=== PATIENT | male | born 1960 | race Caucasian/White ===

== ENCOUNTER → 2019-06-29 | Outpatient (CLI) | payer BC ==
--- NOTE | 2019-06-29 21:23 | CT ---
EXAMINATION TYPE: CT chest wo con DATE OF EXAM: 06/29/2019 COMPARISON: None HISTORY: lung nodule CT DLP: 237.2 mGycm, Automated exposure control for dose reduction was used. CONTRAST: Performed injected with 0 mL of Isovue 300. TECHNIQUE: Axial images were obtained at 5 mm thick sections. Reconstructed images are reviewed on [employer] computer in the coronal plane. FINDINGS: Portion of the thyroid visualized is normal. There is a 0.7 cm density within the mid left lung. Slightly more superior this has a curvilinear ousmane earance suggesting this may be a vascular structure. Some minimal pleural thickening along the latera l right apex may be present. Series 4 image 11 measuring 0.6 cm depth. Some nonspecific pneumonitis changes along the right midlung periphery. Series 4 image 31. Some nonsp ecific pneumonitis changes in the posterior medial left lung base. Series 4 image 51. No enlarged mediastinal or hilar adenopathy is evident. Small shotty lymph nodes are in the pretrac heal space and aortopulmonic window. The ascending aorta diameter at the level of the main pulmonary artery is 3.3 cm. The main pulmonary artery diameter at the bifurcation is 2.[address] sections are obtained through the upper abdomen. Abdomen is essentially unremarkable. IMPRESSIONS: 1. 0.7 cm nodule left midlung may be vascular in origin. Short-term follow-up is recommended. 2. There are scattered areas of pneumonitis discussed above can be reevaluated short-term follow-up. Recommendations: 1. Follow-up chest CT 6 months.
== END | disposition home or self-care (01) ==
LOC: RADCTMAIN 08:18
PROVIDERS: ATTEND Family Medicine
DX: J18.9 Pneumonia, unspecified organism (principal)
CPT/HCPCS: 71250

== ENCOUNTER → 2020-01-21 | Outpatient (CLI) | payer BC ==
--- NOTE | 2020-01-21 08:46 | CT ---
EXAMINATION TYPE: CT chest w con DATE OF EXAM: 01/21/2020 COMPARISON: 06/29/2019 HISTORY: Solitary pulmonary nodule CT DLP: 268.7 mGycm Automated exposure control for dose reduction was used. CONTRAST: CT scan of the chest is performed with IV Contrast, patient injected with 100 mL of Isovue 300. FINDINGS: LUNGS: The lungs are grossly clear, there is no concerning parenchymal mass or nodule identified. T here is no pleural effusion or pneumothorax seen. The tracheobronchial tree is patent. No sizable no dule or pleural effusion. Prominent structure in the left upper lobe appears represent a tortuous blo od vessel. Areas of subsegmental consolidation typical of atelectasis. Subpleural thickening or tiny nodularity in the right upper lobe is able measuring less than 5 mm MEDIASTINUM: There are no greater than 1 cm hilar or mediastinal lymph nodes. Heart size is stable. H eart size is within normal limits. There is mild coronary artery calcification. Aorta of normal calib er.. OTHER: Small hiatal hernia. Hypertrophic and degenerative changes of the spine are seen. IMPRESSION: 1. There is no suspicious pulmonary nodule or mass. Area of concern appears to represent a tortuous b lood vessel. Short-term follow-up pulmonary CTA is recommended to exclude a small pulmonary vascular malformation
== END | disposition home or self-care (01) ==
LOC: RADCTMAIN 07:36
PROVIDERS: ATTEND Family Medicine
DX: R91.1 Solitary pulmonary nodule (principal)
CPT/HCPCS: 71260; 36415; Q9967

== ENCOUNTER → 2022-02-17 | Outpatient (CLI) | payer BC ==
--- NOTE | 2022-02-18 07:37 | MR ---
EXAMINATION TYPE: MR knee RT wo con DATE OF EXAM: 02/17/2022 COMPARISON: Outside right knee x-ray January 18, 2022 HISTORY: Right knee pain, locking and swelling for 3 months. TECHNIQUE: Multiplanar, multisequence imaging of the right knee is performed without IV contrast. FINDINGS: Slightly suboptimal due to to motion artifact degradation. MEDIAL MENISCUS: Anterior and posterior horns are intact without tear. LATERAL MENISCUS: Anterior and posterior horns are intact without tear. CRUCIATE LIGAMENTS: The anterior and posterior cruciate ligaments are intact and unremarkable. COLLATERAL LIGAMENTS: The medial collateral ligament and lateral collateral ligament complex are inta ct. Mild fluid signal surrounds medial collateral ligament. EXTENSOR MECHANISM: Visualized quadriceps and patellar tendons are intact. Increased signal distal qu adriceps tendon. EFFUSION: Large size suprapatellar joint effusion. POPLITEAL CYST: Moderate to large sized multi septated popliteal/art cyst. Ill-defined fluid exten ds inferiorly. TRICOMPARTMENT SPACES: Mild to moderate tricompartment joint space loss and mild spurring. 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 Significant including full-thickness cartilaginous loss medial tibiofe moral compartment. BONE MARROW SIGNAL: There is a heterogeneous increased T2 signal involving the anterior medial and to greater degree lateral aspect of the distal medial femoral condyle sagittal image 15 for reference. There is heterogeneous increased T2 signal involving the inferior aspect of the patella. OTHER: No additional significant abnormality is appreciated. IMPRESSION: 1. Moderate to borderline advanced tricompartment degenerative changes as detailed above . 2. Large suprapatellar joint effusion. 3. Moderate to large sized multiseptated leaking popliteal cyst. 4. Mild MCL sprain injury. 5. Tendinopathy distal quadriceps tendon.
== END | disposition home or self-care (01) ==
LOC: RADMRIMAIN 12:57
PROVIDERS: ATTEND Orthopaedic Surgery
DX: S83.411A Sprain of medial collateral ligament of right knee, initial encounter (principal); M17.11 Unilateral primary osteoarthritis, right knee; M71.21 Synovial cyst of popliteal space [Baker], right knee; M67.863 Other specified disorders of tendon, right knee

== ENCOUNTER → 2022-03-25 | Outpatient (CLI) | payer BC | END | disposition home or self-care (01) | LOC: LABPAT 12:23 | PROVIDERS: ATTEND Orthopaedic Surgery | DX: Z01.812 Encounter for preprocedural laboratory examination (principal); M17.11 Unilateral primary osteoarthritis, right knee; Z22.322 Carrier or suspected carrier of Methicillin resistant Staphylococcus aureus | CPT/HCPCS: 87070 ==

== ENCOUNTER 2022-04-28 05:34 | Day surgery (SDC) | payer BC ==
--- NOTE | 2022-04-27 19:18 | HP ---
HISTORY AND PHYSICAL DATE OF SURGERY: 04/28/2022. HISTORY OF PRESENT ILLNESS: Eugene Yoon is a 61-year-old gentleman, seen with progressive right knee pain. After treatment options were discussed with him, he elected to proceed with right total knee arthroplasty. Consent was obtained. Medical clearance was provided by Dr. Vidal. PAST MEDICAL HISTORY: Noncontributory. PAST SURGICAL HISTORY: Left shoulder arthroscopy. DAILY MEDICATIONS: Aleve. ALLERGIES: Penicillin. SOCIAL HISTORY: He denies tobacco use. PHYSICAL EVALUATION OF THE RIGHT KNEE: His range of motion is -3/4 to 125 degrees. [id number] effusion. Tenderness in medial joint line. Crepitus in medial and patellofemoral compartments with range of motion. Pain with patellofemoral compression. Ligaments are stable. Hip rotation is without pain. Distal neurovascular exam is intact. IMAGING STUDIES: Right knee radiographs reveal severe osteoarthritic changes. IMPRESSION: Right knee osteoarthritis. PLAN: Right total knee arthroplasty. MMODL / IJN: [id number] /
[~2022-04-28 05:34] MED LIST: ACETAMINOPHEN TAB 500 MG TAB PO PRN; MELOXICAM 7.5 MG TAB PO PRN; TRANEXAMIC ACID IN NACL,ISO-OS 1,000 MG in SALINE 1 100ML.BAG IVPB PRN
[2022-04-28] MEDS ORDERED: MIDAZOLAM 2 MG/2 ML VIAL IV PRN (06:05)
[2022-04-28] MEDS ORDERED: LIDOCAINE 1% (10MG/ML) FOR IV START INTRADERMA PRN (06:05)
[2022-04-28] MEDS ORDERED: LACTATED RINGERS 1,000 ML IV SCH (06:05)
[2022-04-28] MEDS ORDERED: DEXAMETHASONE SOD PHOSPHATE 4 MG/ML 1 ML VIAL IV ONE (06:05)
[2022-04-28] MEDS ORDERED: ONDANSETRON 4 MG/2 ML VIAL IVP ONE (06:05)
[2022-04-28] MEDS ORDERED: MIDAZOLAM 2 MG/2 ML VIAL IVP ONE (06:51)
[2022-04-28] MEDS ORDERED: fentaNYL (PF) 50 MCG/ML 2 ML AMP IVP PRN (07:00)
[2022-04-28] MEDS ORDERED: HYDROmorphone 0.5 MG/0.5 ML SYRINGE IVP PRN ×3 (07:00→09:13)
[2022-04-28] MEDS ORDERED: LIDOCAINE 4% LTA KIT (4 ML) TOPICAL ONE (07:25)
[2022-04-28] MEDS ORDERED: MIDAZOLAM 2 MG/2 ML VIAL ONE (07:25)
[2022-04-28] MEDS ORDERED: LIDOCAINE 2% INJ 20 MG/ML (2 ML VIAL) ONE (07:25)
[2022-04-28] MEDS ORDERED: TRANEXAMIC ACID IN NACL,ISO-OS 1,000 MG/100 ML BAG ONE (07:25)
[2022-04-28] MEDS ORDERED: HYDROmorphone (PF) 1 MG/ML ONE (07:25)
[2022-04-28] MEDS ORDERED: ROCURONIUM 10 MG/ML (5 ML VIAL) IV ONE (07:25)
[2022-04-28] MEDS ORDERED: SUCCINYLCHOLINE CHLORIDE 200 MG/10 ML VIAL IV ONE (07:25)
[2022-04-28] MEDS ORDERED: DEXAMETHASONE SOD PHOSPHATE 4 MG/ML 1 ML VIAL ONE (07:25)
[2022-04-28] MEDS ORDERED: ROPIVACAINE 5 MG/ML 30 ML VIAL ONE (07:25)
[2022-04-28] MEDS ORDERED: NEOSTIGMINE 1 MG/ML 10 ML VIAL ONE (07:25)
[2022-04-28] MEDS ORDERED: PROPOFOL 10 MG/ML 20 ML VIAL IV ONE (07:25)
[2022-04-28] MEDS ORDERED: GLYCOPYRROLATE 0.2 MG/ML 2 ML VIAL ONE (07:25)
[2022-04-28] MEDS ORDERED: fentaNYL (PF) 50 MCG/ML 2 ML AMP ONE (07:25)
[2022-04-28] MEDS ORDERED: IV FLUID CONTINUATION 400 ML IV ONE (07:30)
[2022-04-28] MEDS ORDERED: ceFAZolin 1,000 MG in SODIUM CHLORIDE 0.9% 1,000 ML IRRIGATION ONE (08:02)
[2022-04-28] MEDS ORDERED: LACTATED RINGERS 1,000 ML IV ONE ×3 (08:05→10:28)
[2022-04-28] MEDS ORDERED: HYDROcodone/APAP 5-325MG 1 EACH TAB PO PRN (09:13)
[2022-04-28] MEDS ORDERED: HYDROmorphone 1 MG/ML 1 ML SYRINGE IVP PRN (09:13)
[2022-04-28] MEDS ORDERED: ONDANSETRON 4 MG/2 ML VIAL IVP PRN (09:13)
[2022-04-28] MEDS ORDERED: HYDROcodone/APAP 7.5-325MG 1 EACH TAB PO PRN (09:13)
[2022-04-28] MEDS ORDERED: NALOXONE 0.4 MG/ML 1 ML VIAL IV PRN (09:13)
--- NOTE | 2022-04-28 09:13 | P.OP ---
Date of Procedure: 04/28/22 Preoperative Diagnosis: Right knee osteoarthritis Postoperative Diagnosis: Right knee osteoarthritis Procedure(s) Performed: Right total knee arthroplasty Implants: 1. Depuy attune size 5 right cruciate retaining cemented femur 2. Depuy attune size 5 fixed bearing cemented tibial baseplate 3. Depuy attune size 5 cruciate retaining fixed bearing 8 mm polyethylene tibial insert 4. Depuy attune 41 mm all polyethylene cemented patella Anesthesia: GETA, regional (Adductor canal catheter, Ipack block) Surgeon: Paul Sloan Cupola Hoist Operator #1: Quang Espinal Estimated Blood Loss (ml): 40 Pathology: other (Bone) Condition: stable Disposition: PACU Indications for Procedure: 61-year-old patient seen with symptomatic right knee osteoarthritis. After treatment options were discussed, he elected to proceed with right total knee arthroplasty. Operative Findings: see description of procedure Description of Procedure: Patient was taken to the operative suite after having an adductor canal catheter placed by the department of anesthesia. Patient underwent a general anesthetic by the department of anesthesia. Patient was given preoperative IV intake antibiotics and TXA. A well-padded tourniquet was placed about the right lower extremity. The lower extremity was then prepped and draped in the normal sterile orthopedic fashion. The extremity was elevated, a tourniquet was insufflated to 300. A standard anterior incision was made sharply through skin. Dissection was taken down through the subcutaneous soft tissues down to the extensor mechanism. A medial arthrotomy was performed, patella was everted and knee was flexed. There was advanced osteoarthritis noted. I introduced my distal intramedullary femoral drill. I then introduced the distal femoral cutting jig. Tristan PINK secured the cutting jig with 2 pins. I held retractors in position while Tristan PINK performed the distal femoral resection through the guide area we now removed her distal femoral cutting guide. We now placed our 4-in-1 femoral cutting block and positioned and it was secured with 2 pins by Tristan PINK while I held the block in position. The distal femoral finishing was now completed. A proximal tibial cutting guide was positioned. I held the guide in the appropriate position with both hands well Tristan PINK inserted stabilizing pins into the guide. Proximal tibial cut was made. We now placed a trial femoral component into position, along with an appropriate size tibial tray and insert. We now took the knee through range of motion and had full extension good flexion and good overall soft tissue balance noted. The patella was everted and stabilized with 2 towel clips held by Tristan PINK while I performed a flush with patellar quad tendon utilizing a fresh sawblade. We templated the patella, appropriate drill holes were made. An appropriate trial patella was positioned, knee was taken through full range of motion with the patella tracking very nicely. The trial patella was removed. Drill holes were made through the femoral component. All trial components were removed after marking off the appropriate rotation of the tibia. Retractors were now positioned along the proximal tibia. An appropriate keel punch was made with the appropriate size tibial guide by myself on Tristan PINK assisted by holding retractors. At this point appropriate size implants were chosen and opened. The joint was irrigated copiously with pulse lavage mechanical irrigation. The wound was irrigated with pulse lavage mechanical irrigation. We mixed antibiotic methylmethacrylate. We placed the knee into flexion. We placed multiple retractors assisted by Tristan PINK to expose the proximal tibia. Once the methyl methacrylate was ready, the tibial component was cemented into place removing any excess methylmethacrylate form by both myself and Tristan PINK. The femoral component was cemented into place removing the removing any excess methylmethacrylate performed by both myself and Tristan PINK. We then inserted the appropriate size polyethylene tibial insert. We made sure that it was locked into position. We took the knee into full extension, and then back in a flexion making sure we had removed any excess methylmethacrylate. The patellar component was then cemented down and secured with clamp. Excess methylmethacrylate removed. We kept the knee in full extension, patellar clamp in position until methylmethacrylate had hardened. Once it had hardened the patellar clamp was removed. The knee was taken through full range of motion. The patella tracked nicely. There was good soft tissue balancing. The tourniquet was now released. Additional hemostasis was achieved via electrocautery. A second gram of TXA was given. The wound again was irrigated with pulse lavage mechanical irrigation. The extensor mechanism was repaired with Ethibond suture. We checked the repair with range of motion and it was stable. The subcutaneous soft tissues were repaired with Vicryl in layers. The skin was approximated with pernio/Dermabond. Sterile dressings were applied followed by loose web roll and Norbert bandage. The patient was transferred to a bed, and taken to recovery in stable and satisfactory condition. Tristan PINK assisted with this complex procedure.
[2022-04-28 09:32] VITALS: TEMP 98.1
[2022-04-28] MEDS ORDERED: ROPIVACAINE 1,100 MG, SODIUM CHLORIDE 0.9% 500 ML 330 ML, EMPTY PAIN BALL 1 EACH MISCELLANE PRN ×2 (09:43)
[2022-04-28] MEDS ORDERED: HYDROmorphone 0.5 MG/0.5 ML SYRINGE IVP ONE (09:43)
--- NOTE | 2022-04-28 10:42 | XR ---
EXAMINATION TYPE: XR knee limited RT DATE OF EXAM: 04/28/2022 10:13 AM INDICATION: Patient age:Male; 61 years old; Reason for study: Evaluation for Postop abnormality and alignment; COMPARISON: MR right knee 02/17/2022. TECHNIQUE: The 2 knee(s) was examined in Frontal, lateral projections. FINDINGS: Status post total knee arthroplasty changes with hardware in appropriate alignment and in tact. No evidence of fracture. Subcutaneous lucencies and lucencies within the joint consistent with surgical changes. IMPRESSION: Status post total knee arthroplasty changes with hardware intact and appropriate alignment. No fractu res identified.
[2022-04-28 12:54] VITALS: BP 132/74; PULSE 65; RESP 18
--- NOTE | 2022-04-28 21:37 | P.ANPRN ---
Procedure Note - Anesthesia - Nerve Block Performed Right Adductor Canal Infusion Time Out Performed: Yes Date of Procedure: 04/28/22 Procedure Start Time: 06:50 Procedure Stop Time: 07:00 Location of Patient: PreOp Indication: Acute Post-Operative Pain, Requested by Surgeon Sedation Type: Sedate with meaningful contact maintained Preparation: Sterile Prep Position: Supine Catheter: Indwelling Needle Types: Pajunk Needle Gauge: 21 Ultrasound used to visualize needle placement: Yes Ultrasound used to observe medication spread: Yes Blood Aspirated: No Pain Paresthesia on Injection Noted: No Resistance on Injection: Normal Image Stored and Saved: Yes Events: Uneventful and Well Tolerated (ropi .5% 20cc plus dexamethasone 4mg)
--- NOTE | 2022-04-28 21:38 | P.ANPRN ---
Procedure Note - Anesthesia - Nerve Block Performed Right iPack Single Time Out Performed: Yes Date of Procedure: 04/28/22 Procedure Start Time: 07:01 Procedure Stop Time: 07:05 Location of Patient: PreOp Indication: Acute Post-Operative Pain, Requested by Surgeon Sedation Type: Sedate with meaningful contact maintained Preparation: Sterile Prep Needle Types: Pajunk Needle Gauge: 21 Ultrasound used to visualize needle placement: Yes Ultrasound used to observe medication spread: Yes Blood Aspirated: No Pain Paresthesia on Injection Noted: No Resistance on Injection: Normal Image Stored and Saved: Yes Events: Uneventful and Well Tolerated (ropi .5% 25cc plus dexamethasone 4mg)
== END 2022-04-28 14:01 | disposition home health service (06) ==
LOC: OR 05:34
PROVIDERS: ATTEND Orthopaedic Surgery
DX: M17.11 Unilateral primary osteoarthritis, right knee (principal); Z88.0 Allergy status to penicillin; G89.18 Other acute postprocedural pain; F17.210 Nicotine dependence, cigarettes, uncomplicated; Z79.1 Long term (current) use of non-steroidal anti-inflammatories (NSAID); Z98.890 Other specified postprocedural states
CPT/HCPCS: 97162; 64999; 64448; 76942; 88300; 73560; 27447; C1776; C1751; J2250; J0330; J1100; J2710; J0690 ×2; J2405; J3010; J1170 ×2; J2795; J2704; J2001

== ENCOUNTER → 2023-07-11 | Outpatient (CLI) | payer BC ==
--- NOTE | 2023-07-12 02:19 | CT ---
EXAMINATION TYPE: CT right knee - [facility] Protocol DATE OF EXAM: 07/11/2023 COMPARISON: Right knee x-ray August 26, 2022 HISTORY: Unilateral primary osteoarthritis CT DLP: 700 mGycm. Automated Exposure Control for Dose Reduction was Utilized. TECHNIQUE: CT scan of the right lower extremity along with pelvis are performed without contrast. FINDINGS: Exam was for surgical planning and for diagnostic purposes. No significant incidental findi ngs in the pelvis. Metallic hardware from total right knee arthroplasty is redemonstrated. Alignment stable and satisfactory. No suspicious incidental finding in either ankle. IMPRESSION: As above.
== END | disposition home or self-care (01) ==
LOC: RADCTMAIN 07:55
PROVIDERS: ATTEND General Practice
DX: M17.11 Unilateral primary osteoarthritis, right knee (principal)